=== PATIENT | female | born 1930 | race Caucasian/White ===

== ENCOUNTER 2016-10-20 08:55 | Emergency (ER) | payer OTHER ==
--- NOTE | 2016-10-20 11:58 | DIAGNOSTIC IMAGING REPORT ---
PROCEDURE: ABDOMEN/PELVIS WITH CONTRAST CLINICAL INDICATION: ABDOMINAL PAIN TECHNIQUE: 125 ml of Isovue 300 were injected intravenously and axial images were obtained of the abdomen and pelvis with sagittal and coronal reformations. COMPARISON: None. FINDINGS: ABDOMEN: Mild cardiomegaly. Very small hiatal hernia. Respiratory motion at the lung bases. Post cholecystectomy. 1.5 cm splenule. Fatty replacement of the pancreas. Moderate to heavy abdominal aortic atherosclerosis. Normal liver, kidneys, adrenal glands, retroperitoneal, stomach and upper small bowel loops. Occasional transverse and descending colon diverticuli. PELVIS: Multiple sigmoid diverticula and surrounding pericolonic inflammation. Mild fascial thickening. No extraluminal gas or focal fluid collection. No free fluid in the pelvis. Decompressed pelvic small bowel loops. Liquid stool in the cecum. Surgically absent uterus. No suspicious pelvic masses. Patent vasculature. 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 IMPRESSION: 1. Acute sigmoid diverticulitis without evidence of perforation or abscess. 2. Post cholecystectomy and hysterectomy. 3. Mild cardiomegaly. 4. Moderate to heavy abdominal aortic atherosclerosis. 5. Findings called to the emergency room. All CT scans at this facility use dose modulation, iterative reconstruction, and/or weight-based dosing when appropriate to reduce radiation dose to as low as reasonably achievable.
--- NOTE | 2016-10-20 12:07 | ED CLINICAL REPORT ---
Clinical Report - Physicians/Mid Levels [facility] [address] [place] [address] 10/20/2016 8:55 Patient: CEE GOVEA Time Seen: 09:22. Arrived- By ambulance. Historian- patient and EMS personnel. HISTORY OF PRESENT ILLNESS Chief Complaint: ABDOMINAL PAIN. At its maximum, severity described as moderate. When seen in the E.D., severity described as moderate. Modifying factors. Not worsened by anything. Not relieved by anything. It is described as "pain". No radiation. It is described as located in the lower abdomen. This started about 3 days ago and is still present. No nausea, loss of appetite, vomiting or diarrhea. Similar symptoms previously: Milder. Recent medical care: Not recently seen/assessed. REVIEW OF SYSTEMS The patient has had constipation (chronically). No black stools, hematemesis, difficulty with urination, pain with urination or urinary frequency. No bloody stools, fever, headache, sore throat or blurred vision. No chest pain, difficulty breathing, cough, joint pain or skin rash. No chills or back pain. All systems otherwise negative, except as recorded above. PAST HISTORY Problems: Peptic Ulcer Disease. [place]. Hypertension. Hyperthyroidism. Additional Surgeries: Cholecystectomy. Dental Surgery. Elbow. Hysterectomy. Knee Surgery. Medications: Bp pill with potassium in it. Levothyroxine Sodium Oral. Allergies: Codeine. SOCIAL HISTORY Never smoker. No alcohol use or drug use. ADDITIONAL NOTES The nursing notes have been reviewed. PHYSICAL EXAM Vital Signs: 10/20/2016 09:05 BP: 160/43. HR: 67. RR: 18. O2 saturation: 98%. Temp: 97.9 F. Have been reviewed. Appearance: Alert. Oriented X3. No acute distress. Eyes: Pupils equal, round and reactive to light. Eyes normal inspection. ENT: Nose normal. Neck: Normal inspection. CVS: Normal heart rate and rhythm. Heart sounds normal. Pulses normal. Respiratory: No respiratory distress. Breath sounds normal. Abdomen: Soft. Moderate tenderness in the right lower quadrant and suprapubic area. No guarding or rebound tenderness. Back: Normal inspection. No CVA tenderness. Skin: Skin warm and dry. Normal skin color. No rash. Normal skin turgor. Extremities: Extremities exhibit normal ROM. No lower extremity edema. Neuro: Oriented X 3. No motor deficit. No sensory deficit. LABS, X-RAYS, AND EKG Abdominal CT: Normal aorta. Normal liver, spleen, pancreas, adrenals and kidneys. Bladder normal. Appendix normal. There is evidence of diverticulitis (Sigmoid colon). No inflammatory phlegmon, focal abscess or perforation with free air. No mass. No bony lesion. Study type: abdomen and pelvis. Abdominal CT performed with IV contrast. The study was independently viewed by me, interpreted by the radiologist and contemporaneously by me and discussed with the radiologist. Prior studies were not available for comparison. Laboratory Tests: UA-Culture if indicated: (MORRIS: 10/20/2016 10:50) ( [facility] 10/20/2016 12:19) Final results Test Result Flag Units (Reference) URINE COLOR YELLOW URINE APPEARANCE CLEAR URINE GLUCOSE NEGATIVE (NEGATIVE) URINE BILIRUBIN NEGATIVE (NEGATIVE) URINE KETONE NEGATIVE (NEGATIVE) URINE SPECIFIC GRAVITY <= 1.005 L (1.010-1.030) URINE PH 6.0 (5.0-8.0) URINE PROTEIN NEGATIVE (NEGATIVE) URINE UROBILINOGEN 0.2 EU/dL (0.2-1.0) URINE NITRITE NEGATIVE (NEGATIVE) URINE BLOOD NEGATIVE (NEGATIVE) URINE LEUK ESTERASE NEGATIVE (NEGATIVE) URINE RBC NONE SEEN rbc/hpf (0-1) URINE WBC NONE SEEN wbc/hpf (0-1) URINE EPITHELIAL CELLS 1-3 EPI/hpf (0-5) URINE BACTERIA NONE SEEN (NONE SEEN) URINE COMMENT CULT NOT INDICATED URINE CULTURES ARE SET-UP BASED ON THE FOLLOWING CRITERIA:POSITIVE NITRITEPOSITIVE LEUKOCYTE ESTERASEGREATER THAN 10 WHITE BLOOD CELLSMODERATE (2+) OR GREATER BACTERIA CBC w Diff: (MORRIS: 10/20/2016 10:27) ( [facility] [place] 10/20/2016 10:37) Final results Test Result Flag Units (Reference) WHITE BLOOD COUNT 8.3 K/uL (4.5-11.5) RED BLOOD COUNT 4.32 M/uL (4.00-5.20) HEMOGLOBIN 12.5 gm/dL (12.0-16.0) HEMATOCRIT 37.1 % (36.0-46.0) MEAN CELL VOLUME 86 fL (80-100) MEAN CORPUSCULAR HGB 29 pg (26-34) MEAN CORPUSCULAR HGB CONC 34 g/dL (31-37) RED CELL DISTRIBUTION WIDTH 13.0 % (11.6-14.8) PLATELET COUNT 231 K/uL (150-400) NEUTROPHIL % 68.3 % (50-75) LYMPH % 18.6 L % (25-40) MONO % 11.8 % (3-14) EOSINOPHIL % 1.1 % (0-4) BASOPHIL % 0.2 % (0-2) CMP: (MORRIS: 10/20/2016 10:27) ( MsgRcvd 10/20/2016 11:14) Final results Test Result Flag Units (Reference) GLUCOSE 102 mg/dL (70-110) BUN 14 mg/dL (7-18) CREATININE 0.9 mg/dL (0.6-1.3) Estimated GFR >60 mL/min Estimated GFR- >60 mL/min Note: Persistent reduction over 3 months in eGFR<60 mL/min/1.73 m2 defines CKD. Patients with eGFR values>=60 mL/min/1.73 m2 may also have CKD if evidence ofpersistent proteinuria. Additional information may be foundat www.kidney.org. SODIUM 143 mmol/L (136-145) POTASSIUM 3.8 mmol/L (3.5-5.1) CHLORIDE 105 mmol/L (98-107) CARBON DIOXIDE 28 mmol/L (21-32) CALCIUM 9.0 mg/dL (8.5-10.1) TOTAL PROTEIN 7.3 g/dL (6.4-8.2) ALBUMIN 3.4 g/dL (3.3-5.0) BILIRUBIN, TOTAL 0.4 mg/dL (0.0-1.0) ALKALINE PHOSPHATASE 94 U/L (46-116) AST (SGOT) 23 U/L (15-37) ALT (SGPT) 22 U/L (12-78) . Pulse Oximetry: 10/20/2016 09:05 O2 saturation: 98%. (FIO2 - room air). Interpretation: normal. PROGRESS AND PROCEDURES Course of Care: Patient was treated symptomatically with IV Dilaudid and Toradol as well as fluids. She was worked up for her symptoms with a CT scan of the abdomen and pelvis as well as a urinalysis and labs. She was found to have diverticulitis of the sigmoid colon, and was treated with PO Levaquin and Flagyl for this. Patient was feeling well otherwise and I felt she was stable for discharge home. Patient and spouse counseled in person regarding the patient's stable condition, test results, diagnosis and need for follow-up. Concerns were addressed. Old medical records reviewed. Disposition: Discharged. Condition: stable and improved. CLINICAL IMPRESSION Acute diverticulitis of the colon. No perforation, bleeding, abscess, peritonitis or obstruction. INSTRUCTIONS Drink plenty of fluids. Warnings: GENERAL WARNINGS: Return or contact your physician immediately if your condition worsens or changes unexpectedly, if not improving as expected, or if other problems arise. Your Current Medications: CONTINUE TAKING THE FOLLOWING MEDICATIONS: Bp pill with potassium in it*. Levothyroxine Sodium Oral. Prescription Medications: Flagyl 500 mg: Take 1 tablet orally every 12 hours for 14 days. No refill. Substitution is permissible Levaquin 500 mg: take 1 tab orally every day for 14 days. No refills. Substitution is permissible. Follow-up: Follow up with your doctor in seven days if not better. Understanding of the discharge instructions verbalized by patient. (Electronically signed by Lucy Davies MD 10/20/2016 22:25)
--- NOTE | 2016-10-20 12:07 | ED ORDER SUMMARY ---
..... Patient: CEE GOVEA OrderSheet [facility] VisitID: [id number] [place] [address] 86y, F Registration Date/Time: 10/20/2016 ORDER SHEET Weight: 87.5 kg (stated) Allergies: Codeine GENERAL ORDERS: CT Abd/Pel w Cont (No) (N/A) Urgent (10:10/20/2016 Yue BELLO) (Ack 10:12 PWeiler ER Tech1) (11:45 Juan R.N.) CBC w Diff Urgent (10:10/20/2016 Yue BELLO) (Ack 10:12 PWeiler ER Tech1) (10:28 PWeiler ER Tech1) CMP Urgent (10:10/20/2016 Yue BELLO) (Ack 10:12 PWeiler ER Tech1) (10:28 PWeiler ER Tech1) UA-Culture if indicated Urgent (10:10/20/2016 Yue BELLO) (Ack 10:12 PWeiler ER Tech1) (11:51 Juan R.N.) MEDICATION ORDERS: Levofloxacin PO 500 mg (NOW) (12:10/20/2016 Yue BELLO) (Ack 12:10 Antonio R.N.) (12:16 Antonio R.N.) Flagyl PO 500 mg (NOW) (12:10/20/2016 Yue BELLO) (Ack 12:10 Antonio R.N.) (12:17 Antonio R.N.) IV FLUIDS: IV NS : initial bolus 1000 mL (1000 mL/hr), then none - (NOW) (10:10/20/2016 Yue BELLO) (10:40 LWhaldestiny R.N.) Dilaudid IV 0.5 mg (HIGH ALERT MEDICATION, NOW) (10:10/20/2016 Yue BELLO) (10:40 LWpascual R.N.) Toradol IV 30 mg (NOW) (10:10/20/2016 Yue BELLO) (10:41 LWhalen R.N.) ORDER SHEET NOTES: [Electronically signed by Dorothy Mendieta R.N. (14:03 10/20/2016)] [Electronically signed by Lucy Davies MD (22:25 10/20/2016)] [Electronically locked/signed by Dorothy Mendieta R.N. (14:03 10/20/2016)]
--- NOTE | 2016-10-20 12:07 | ED ORDER SUMMARY ---
..... Patient: CEE GOVEA OrderSheet [facility] VisitID: [id number] [address] [place] [address] 86y, F Registration Date/Time: 10/20/2016 ORDER SHEET Weight: 87.5 kg (stated) Allergies: Codeine GENERAL ORDERS: CT Abd/Pel w Cont (No) (N/A) Urgent (10:10/20/2016 Yue BELLO) (Ack 10:12 PWeiler ER Tech1) (11:45 Juan R.N.) CBC w Diff Urgent (10:10/20/2016 Yue BELLO) (Ack 10:12 PWeiler ER Tech1) (10:28 PWeiler ER Tech1) CMP Urgent (10:10/20/2016 Yue BELLO) (Ack 10:12 PWeiler ER Tech1) (10:28 PWeiler ER Tech1) UA-Culture if indicated Urgent (10:10/20/2016 Yue BELLO) (Ack 10:12 PWeiler ER Tech1) (11:51 Juan R.N.) MEDICATION ORDERS: Levofloxacin PO 500 mg (NOW) (12:10/20/2016 Yue BELLO) (Ack 12:10 Antonio R.N.) (12:16 Antonio R.N.) Flagyl PO 500 mg (NOW) (12:10/20/2016 Yue BELLO) (Ack 12:10 Antonio R.N.) (12:17 Antonio R.N.) IV FLUIDS: IV NS : initial bolus 1000 mL (1000 mL/hr), then none - (NOW) (10:10/20/2016 Yue BELLO) (10:40 LWhaldestiny R.N.) Dilaudid IV 0.5 mg (HIGH ALERT MEDICATION, NOW) (10:10/20/2016 Yue BELLO) (10:40 LWpascual R.N.) Toradol IV 30 mg (NOW) (10:10/20/2016 Yue BELLO) (10:41 LWhalen R.N.) ORDER SHEET NOTES: [Electronically signed by Dorothy Mendieta R.N. (14:03 10/20/2016)] [Electronically signed by Lucy Davies MD (22:25 10/20/2016)] [Electronically locked/signed by Dorothy Mendieta R.N. (14:03 10/20/2016)]
--- NOTE | 2016-10-20 12:07 | ED NURSING NOTES ---
Clinical Report - Nurses [facility] [place] [address] 10/20/2016 8:55 [id number] Triage time 09:Oct 20 2016. Acuity: LEVEL 3. Chief Complaint: ABDOMINAL PAIN. LINDEN COMA SCORE: [place] Coma Scale: 15- eyes open spontaneously (4); best verbal response- oriented x 4 (5); best motor response- obeys commands (6). --09:13 Dorothy Mendieta R.N. 09:05 10/20/16. BP: 160/43. HR: 67. RR: 18. O2 saturation: 98%. Temp: 97.9 F. Pain level now 11/20. --09:13 Dorothy Mendieta R.N. Weight: 87.5 kg stated. Height/Length: 63 inches Per Patient. BMI: 34.2. --09:08 Dorothy Mendieta R.N. Medications Levothyroxine Sodium Oral. --09:10 Dorothy Mendieta R.N. Bp pill with potassium in it. --09:10 Dorothy Mendieta R.N. Allergies Codeine. --09:10 Dorothy Mendieta R.N. History Arrived by private vehicle. Historian: patient. ( Since she fell about a month ago. said that she pooped a worm white and about the size of his ring finger. Patient states she has been constipated used a enema and had a small BM this am.). She has had constipation and abdominal pain. Last oral intake by patient was breakfast. PAST MEDICAL HX: Peptic ulcer disease. Immunizations: up-to-date. SOCIAL HX: Never smoker. No alcohol use or drug use. No recent travel. No known contact with a sick individual. SELF HARM ASSESSMENT: A self harm assessment was performed. The patient answered "no" to the question "Have you recently felt down, depressed, or hopeless?" and "Do you have thoughts of harming or killing yourself?". FALL RISK ASSESSMENT: Fall risk assessment completed. No fall risk identified. NUTRITIONAL RISK ASSESSMENT: The nutritional risk assessment revealed no deficiencies. FUNCTIONAL ASSESSMENT: Functional assessment: no impairments noted. LEARNING NEEDS ASSESSMENT: The learning needs assessment revealed no barriers. ABUSE ASSESSMENT: Abuse assessment: (yes) The patient was asked "Do you feel safe in your home?". SKIN INTEGRITY ASSESSMENT: Skin integrity risk assessment completed. No skin integrity risk identified. --09:13 Dorothy Mendieta R.N. PROBLEMS: Fall. Back Pain. TIMBI-SHA SHOSHONE. Hypertension. Hyperthyroidism. --09:12 Dorothy Mendieta R.N. The following entry was modified by Lucy Davies MD, 10:14 Reason - duplicate <<STRICKEN ENTRY-- Thyroid Disease. --10:14 Lucy Davies MD --END STRIKE>>. ADDITIONAL SURGERIES: Cholecystectomy. Dental Surgery. Elbow. Hysterectomy. Knee Surgery. --09:12 Dorothy Mendieta R.N. Interventions ID band on patient. --09:13 Dorothy Mendieta R.N. PHYSICAL ASSESSMENT Ambulatory to room. GENERAL / NEURO / PSYCH: Alert. Oriented X 4. Appears in no acute distress. HEENT: Mucous membranes are pink. RESPIRATORY: Respirations not labored. Breath sounds within normal limits. CVS: Normal sinus rhythm noted. Capillary refill less than 2 seconds. GI / : Abdominal distention. Abdomen soft. Abdominal tenderness. Bowel sounds within normal limits. SKIN: Skin is warm and dry. --09:14 Dorothy Mendieta R.N. NURSING PROGRESS NOTES The initial plan of care for this patient includes an assessment with efforts to address patient positioning, appropriate ambient lighting and comfortable environmental temperature; impairment of the gastrointestinal system. Pulse oximeter and NIBP monitor placed on patient. Patient gowned. Head of bed elevated 45 degrees. Reassurance given. Call light placed in reach. Side rails up x 1. Bed placed in lowest position. Brakes of bed on. --09:14 Dorothy Mendieta R.N. 10:15 10/20/2016 Site #1 started via IV in the right forearm with an 20g angiocath, with aseptic technique and good blood return; one attempt. Saline lock flushed with 10 mL saline. --10:40 Dorothy Mendieta R.N. 10:40 10/20/2016 Started bag #1 1000 mL IV Fluids IV NS (Saline); at 1000 mL/hr over 1 hour(s) via site #1 via IV pump. Allergies verified and confirmed 5 rights. IV patency established. IV site checked: no pain, redness, or swelling. IV flushed thoroughly pre- and post-medication administration. --10:40 Dorothy Mendieta R.N. 10:40 10/20/2016 Dilaudid (HYDROmorphone HCl PF) IVP 0.5 mg given over 2 minute(s) via site #1. Allergies verified, confirmed 5 rights and sedative warning given to the patient and patient's early childhood associate. IV patency established. IV site checked: no pain, redness, or swelling. IV flushed thoroughly pre- and post-medication administration. --10:40 Dorothy Mendieta R.N. 10:41 10/20/2016 Toradol IVP 30 mg given over 2 minute(s) via site #1. Allergies verified and confirmed 5 rights. IV patency established. IV site checked: no pain, redness, or swelling. IV flushed thoroughly pre- and post-medication administration. --10:41 Dorothy Mendieta R.N. 11:45 10/20/16. ( CT completed). --11:45 Mayur Daniel R.N. 11:51 10/20/16. HR: 76. RR: 20. O2 saturation: 99% on room air. --11:52 Mayur Daniel R.N. 11:52 10/20/16. --11:52 Mayur Daniel R.N. 12:16 10/20/2016 Levofloxacin PO Tablets 500 mg given. Allergies verified and confirmed 5 rights. --12:16 Mesha Cortes R.N. 12:17 10/20/2016 Flagyl (MetroNIDAZOLE) PO Tablets 500 mg given. Allergies verified and confirmed 5 rights. --12:17 Mesha Cortes R.N. 12:19 10/20/2016 IV Fluids IV NS Discontinued: bag #1 infused upon discharge. Total amount infused: 900 mL. IV patency established. IV site checked: no pain, redness, or swelling. IV flushed thoroughly. --12:29 Dorothy Mendieta R.N. DISPOSITION / DISCHARGE Departure time: 12:Oct 20 2016. Condition at departure: improved. No learning barriers present. Discharge instructions provided and reviewed with the patient and spouse. Reviewed warnings. Reviewed medication(s). Treatments reviewed. Reviewed referrals. Patient and spouse verbalized understanding. Written instructions provided in Iranian. The patient was discharged home and accompanied by spouse. She left the Emergency Department ambulatory and via private vehicle. Spouse driving. --12:27 Dorothy Mendieta R.N. 12:24 10/20/16. BP: 158/77. HR: 62. RR: 17. O2 saturation: 98%. Temp: 98.2 F. Pain level now 06/20. --12:27 Dorothy Mendieta R.N. 12:23 10/20/2016 Site #1 removed upon discharge. Catheter intact. Pressure dressing applied. --12:28 Dorothy Mendieta R.N. Locked/Released at 10/20/2016 14:03 by Dorothy Mendieta R.N.
--- NOTE | 2016-10-20 22:25 | ED MED RECONCILIATION SUMMARY ---
Patient: CEE GOVEA Medication Reconciliation Report [facility] VisitID: [id number] [address] [place] [address] 86y, F Registration Date/Time: 10/20/2016 Weight: 87.5 kg Height/Length: 63 in. BMI: 34.2 ALLERGIES: Codeine The patient's Home Medications are listed below: CONTINUE TAKING THE FOLLOWING MEDICATIONS: Bp pill with potassium in it Levothyroxine Sodium Oral The source(s) of the original Home Medication information: Not obtained. The following Medications were given to the patient in the Emergency Department: IV NS IV Fluids bolus 0, then 1000 mL/hr, administered: 10/20/2016 10:40:00 AM Dilaudid [IVP] IVP 0.5 mg, administered: 10/20/2016 10:40:00 AM Toradol [IVP] IVP 30 mg, administered: 10/20/2016 10:41:00 AM Levofloxacin [PO] PO 500 mg, administered: 10/20/2016 12:16:00 PM Flagyl [PO] PO 500 mg, administered: 10/20/2016 12:17:00 PM The following Medications were prescribed to the patient: Flagyl 500 mg: Take 1 tablet orally every 12 hours for 14 days. No refill. Substitution is permissible -- Lucy Davies MD Levaquin 500 mg: take 1 tab orally every day for 14 days. No refills. Substitution is permissible. -- Lucy Davies MD
--- NOTE | 2016-10-20 22:25 | ED DISCHARGE INSTRUCTIONS ---
Patient: CEE GOVEA General Instructions [facility] VisitID: [id number] [place] [address] 86y, F Registration Date/Time: 10/20/2016 Acute diverticulitis of the colon. No perforation, bleeding, abscess, peritonitis or obstruction. INSTRUCTIONS Drink plenty of fluids. Warnings: GENERAL WARNINGS: Return or contact your physician immediately if your condition worsens or changes unexpectedly, if not improving as expected, or if other problems arise. Your Current Medications: CONTINUE TAKING THE FOLLOWING MEDICATIONS: Bp pill with potassium in it*. Levothyroxine Sodium Oral. Prescription Medications: Flagyl 500 mg: Take 1 tablet orally every 12 hours for 14 days. No refill. Substitution is permissible Levaquin 500 mg: take 1 tab orally every day for 14 days. No refills. Substitution is permissible. Follow-up: Follow up with your doctor in seven days if not better. Understanding of the discharge instructions verbalized by patient. ADDITIONAL INFORMATION Diverticulitis Some people develop pouches along the wall of the colon as they get older. The pouches,called diverticuli, usually cause no symptoms. If the pouches become blocked, an infection may occur known as diverticulitis. This causes lower abdominal pain and fever. If not treated, it can become a serious condition, causing an abscess to form inside the pouch. The abscess may block the instestinal tract even or rupture, spreading infection throughout the abdomen. When treatment is started early, oral antibiotics alone may be enough to cure diverticulitis. This method is tried first. However, if you do not improve or if your condition worsens while you are trying oral antibiotics, it will be necessary to admit you to the hospital for IV antibiotics. Severe cases may require surgery. Home care The following guidelines will help you care for your diverticulitis at home: During the acute illness, rest and follow a low-fiber diet: Foods to Include: flake cereal, mashed potatoes, pancakes, waffles, pasta, white bread, rice, applesauce, bananas, eggs, meat, fish, poultry, tofu, cooked vegetables. Take antibiotics exactly as directed. Do not miss any doses or stop taking the medication, even if you feel better. Monitor your temperature and report any rising temperature to your doctor. Preventing future attacks Once you have had an episode of diverticulitis, you are at risk of having a recurrence. After you have recovered from this episode, you may be able to reduce your risk by eating a high-fiber diet (2035 gm/day of fiber). This cleans out the colon pouches that already exist and prevent new ones from forming. Foods high in fiber includes fresh fruits and edible peelings, raw or lightly cooked vegetables, whole grain cereals and breads, dried beans and peas, bran. Follow-up care Follow up with your doctor as advised or sooner if you are not improving in the nexttwo days. When to seek medical care Get prompt medical attention if any of the following occur: Fever of 100.4F (38C) or higher, or as directed by your health care provider Repeated vomiting or swelling of the abdomen Weakness, dizziness, light-headedness Increasing abdominal pain that becomes severe or spreads to your back Pain that moves to the right lower abdomen Rectal bleeding (red, black or maroon color of the stools) Unexpected vaginal bleeding You have been given the following additional information: Diverticulitis (Electronically signed by Lucy Davies MD 10/20/2016 22:25)
--- NOTE | 2016-10-20 22:25 | ED MAR SUMMARY ---
..... Medication Administration Record [facility] [address] [address] Patient: CEE GOVEA Visit ID: [id number] 86y, F Weight: 87.5 kg Height/Length: 63 in BMI: 34.2 ALLERGIES: Codeine Start 10:40 10/20/2016 Dorothy Mendieta R.N., Stop 12:19 10/20/2016 Dorothy Mendieta R.N. Medication Administered: IV NS (SALINE), Dose: IV Fluids over 1 hour(s), Rate: 1000 mL/hr, Dispensed: 1000 mL bag, Site: #1 right forearm. Medication Ordered: IV NS : initial bolus 1000 mL (1000 mL/hr), then none - (NOW). Given 10:10/20/2016 Dorothy Mendieta R.N. Medication Administered: DILAUDID [IVP] (HYDROMORPHONE HCL PF), Dose: 0.5 mg IVP over 2 minute(s), Site: #1 right forearm. Medication Ordered: Dilaudid IV 0.5 mg (HIGH ALERT MEDICATION, NOW). Given 10:41 10/20/2016 Dorothy Mendieta R.N. Medication Administered: TORADOL [IVP], Dose: 30 mg IVP over 2 minute(s), Site: #1 right forearm. Medication Ordered: Toradol IV 30 mg (NOW). Given 12:16 10/20/2016 Mesha Cortes R.N. Medication Administered: LEVOFLOXACIN [PO], Dose: 500 mg Tablets PO. Medication Ordered: Levofloxacin PO 500 mg (NOW). Given 12:17 10/20/2016 Mesha Cortes R.N. Medication Administered: FLAGYL [PO] (METRONIDAZOLE), Dose: 500 mg Tablets PO. Medication Ordered: Flagyl PO 500 mg (NOW).
--- NOTE | 2016-10-20 22:25 | ED MED RECONCILIATION SUMMARY ---
Patient: CEE GOVEA Medication Reconciliation Report [facility] VisitID: [id number] [address] [place] [address] 86y, F Registration Date/Time: 10/20/2016 Weight: 87.5 kg Height/Length: 63 in. BMI: 34.2 ALLERGIES: Codeine The patient's Home Medications are listed below: CONTINUE TAKING THE FOLLOWING MEDICATIONS: Bp pill with potassium in it Levothyroxine Sodium Oral The source(s) of the original Home Medication information: Not obtained. The following Medications were given to the patient in the Emergency Department: IV NS IV Fluids bolus 0, then 1000 mL/hr, administered: 10/20/2016 10:40:00 AM Dilaudid [IVP] IVP 0.5 mg, administered: 10/20/2016 10:40:00 AM Toradol [IVP] IVP 30 mg, administered: 10/20/2016 10:41:00 AM Levofloxacin [PO] PO 500 mg, administered: 10/20/2016 12:16:00 PM Flagyl [PO] PO 500 mg, administered: 10/20/2016 12:17:00 PM The following Medications were prescribed to the patient: Flagyl 500 mg: Take 1 tablet orally every 12 hours for 14 days. No refill. Substitution is permissible -- Lucy Davies MD Levaquin 500 mg: take 1 tab orally every day for 14 days. No refills. Substitution is permissible. -- Lucy Davies MD
--- NOTE | 2016-10-20 22:25 | ED MAR SUMMARY ---
..... Medication Administration Record [facility] [address] [place] [address] Patient: CEE GOVEA Visit ID: [id number] 86y, F Weight: 87.5 kg Height/Length: 63 in BMI: 34.2 ALLERGIES: Codeine Start 10:40 10/20/2016 Dorothy Mendieta R.N., Stop 12:19 10/20/2016 Dorothy Mendieta R.N. Medication Administered: IV NS (SALINE), Dose: IV Fluids over 1 hour(s), Rate: 1000 mL/hr, Dispensed: 1000 mL bag, Site: #1 right forearm. Medication Ordered: IV NS : initial bolus 1000 mL (1000 mL/hr), then none - (NOW). Given 10:10/20/2016 Dorothy Mendieta R.N. Medication Administered: DILAUDID [IVP] (HYDROMORPHONE HCL PF), Dose: 0.5 mg IVP over 2 minute(s), Site: #1 right forearm. Medication Ordered: Dilaudid IV 0.5 mg (HIGH ALERT MEDICATION, NOW). Given 10:41 10/20/2016 Dorothy Mendieta R.N. Medication Administered: TORADOL [IVP], Dose: 30 mg IVP over 2 minute(s), Site: #1 right forearm. Medication Ordered: Toradol IV 30 mg (NOW). Given 12:16 10/20/2016 Mesha Cortes R.N. Medication Administered: LEVOFLOXACIN [PO], Dose: 500 mg Tablets PO. Medication Ordered: Levofloxacin PO 500 mg (NOW). Given 12:17 10/20/2016 Mesha Cortes R.N. Medication Administered: FLAGYL [PO] (METRONIDAZOLE), Dose: 500 mg Tablets PO. Medication Ordered: Flagyl PO 500 mg (NOW).
== END 2016-10-20 12:20 | disposition home or self-care (01) ==
LOC: ED SRH 08:55
DX: K57.32 Diverticulitis of large intestine without perforation or abscess without bleeding (principal); I10 Essential (primary) hypertension; E05.90 Thyrotoxicosis, unspecified without thyrotoxic crisis or storm; Z79.899 Other long term (current) drug therapy; Z88.5 Allergy status to narcotic agent
CPT/HCPCS: 90004; 90074; 90100; 95059